=== PATIENT | female | born 1990 | race Two or more races ===

== ENCOUNTER 2023-05-06 15:36 | Outpatient (CLI) | payer OTHER | END 2023-05-06 17:31 | disposition home or self-care (01) | LOC: PRENATAL 15:36 | PROVIDERS: ATTEND Obstetrics & Gynecology Maternal & Fetal Medicine | DX: O36.80X0 Pregnancy with inconclusive fetal viability, not applicable or unspecified (principal); Z36.0 Encounter for antenatal screening for chromosomal anomalies; Z36.82 Encounter for antenatal screening for nuchal translucency; Z3A.11 11 weeks gestation of pregnancy ==

== ENCOUNTER → 2023-07-09 08:32 | Outpatient (CLI) | payer OTHER | END | disposition home or self-care (01) | LOC: PRENATAL 08:32 | PROVIDERS: ATTEND Obstetrics & Gynecology Maternal & Fetal Medicine | DX: O35.3XX0 Maternal care for (suspected) damage to fetus from viral disease in mother, not applicable or unspecified (principal); O44.00 Complete placenta previa NOS or without hemorrhage, unspecified trimester; Z3A.20 20 weeks gestation of pregnancy ==

== ENCOUNTER 2023-09-13 22:56 | Emergency (ER) | payer OTHER ==
[~2023-09-13] VITALS: Ht 177.8 cm; Wt 103.0 kg
[2023-09-14] MEDS ORDERED: ACETAMINOPHEN 500 MG GEL..CAP PO STA (00:34)
== END 2023-09-14 01:01 | disposition home or self-care (01) ==
LOC: ER
DX: O26.893 Other specified pregnancy related conditions, third trimester (principal); Z3A.29 29 weeks gestation of pregnancy; S93.492A Sprain of other ligament of left ankle, initial encounter; W18.39XA Other fall on same level, initial encounter; Y93.89 Activity, other specified; Y92.89 Other specified places as the place of occurrence of the external cause

== ENCOUNTER 2023-10-01 10:40 | Outpatient (CLI) | payer OTHER | END 2023-10-01 10:41 | disposition home or self-care (01) | LOC: PRENATAL 10:40 | PROVIDERS: ATTEND Obstetrics & Gynecology Maternal & Fetal Medicine | DX: O36.8199 Decreased fetal movements, unspecified trimester, other fetus (principal); O26.849 Uterine size-date discrepancy, unspecified trimester; Z3A.32 32 weeks gestation of pregnancy ==